=== PATIENT | male | born 1980 | race African-American/Black ===

== ENCOUNTER 2016-09-19 12:56 | Emergency (ER) | payer SELFPAY ==
[~2016-09-19] VITALS: Ht 182.9 cm; Wt 100.0 kg
[2016-09-19 13:01] VITALS: BP 142/89; TEMP 97.8
[2016-09-19] MEDS ORDERED: EFFE25TA PO (13:32)
[2016-09-19] MEDS ORDERED: AMOXICILLIN 50500 MG PO (14:00)
[2016-09-19] MEDS ORDERED: ULTRAM 50MG TAB50 MG PO (14:00)
[2016-09-19 14:05] VITALS: PULSE 88
== END 2016-09-19 14:07 | disposition home or self-care (01) ==
LOC: COL.ER 12:56
DX: S09.90XA Unspecified injury of head, initial encounter (principal); S00.93XA Contusion of unspecified part of head, initial encounter; S16.1XXA Strain of muscle, fascia and tendon at neck level, initial encounter; S01.81XA Laceration without foreign body of other part of head, initial encounter; S01.512A Laceration without foreign body of oral cavity, initial encounter; W22.01XA Walked into wall, initial encounter; R40.2412 Glasgow coma scale score 13-15, at arrival to emergency department; Z87.820 Personal history of traumatic brain injury